=== PATIENT | male | born 1980 | race Two or more races ===

== ENCOUNTER 2018-06-28 16:05 | Emergency (ER) | payer OTHER ==
[~2018-06-28] VITALS: Ht 177.8 cm; Wt 49.9 kg
--- NOTE | 2018-06-28 16:16 | NUR ---
ED Nurse Note: PT BROUGHT IN BY R[facility] FROM [facility]. AOX4. PT C/O BILATERAL HIP PAIN, 5/10 RADIATING DOWN TO BILATERAL LOWER EXTREMITIES X 1 HOUR AGO. PT DENIES RECENT INJURY OR TRAUMA. FULL ROM OF BILATERAL LOWER EXTREMITIES, CAP REFILL <3 SECONDS, CIRCULATION AND SENSATION INTACT, MUSCLE STRENGTH 5/5.
--- NOTE | 2018-06-28 16:17 | NUR ---
ED Nurse Note: PT PRESENTS WITH LACERATION CLOSED WITH VAISHALI TO MEDIAL HEAD. VAISHALI REMOVED BY DR. BALDERRAMA. NO SIGNS OF INFECTION.
[2018-06-28 16:18] VITALS: BP 122/82
--- NOTE | 2018-06-28 16:24 | NUR ---
ED Nurse Note: PT DRESSED IN WEATHER APPROPRIATE CLOTHING. PT OFFERED FOOD AND DRINK BUT PT REFUSES. PT ASKED WHERE HE WILL GO AFTER DISCHARGE FROM EMERGENCY ROOM. PT STATES HE IS GOING TO GO TO [facility]. PT ASKED IF HE NEEDS ASSISTANCE WITH GROUP HOME PLACEMENT. PT REFUSES ASSISTANCE. PT GIVEN INFORMATION ON AVAILABLE SHELTERS AND GIVEN SUGGESTIONS ON POSSIBLE SHELTERS HE CAN GO TO SHOULD HE CHANGE HIS MIND. PT ALSO GIVEN INFORMATION ON FREE HEALTH CLINICS THAT ARE AVAILABLE TO HIM. PT VERBALIZES UNDERSTANDING AND STATES HE WILL LOOK INTO THE RESOURCES ON HIS OWN TIME.
[2018-06-28] MEDS ORDERED: HYDROcodone/Acetamin 5/325 tab ORAL ONE (16:30)
--- NOTE | 2018-06-28 16:51 | NUR ---
ED Nurse Note: XRAY AT BEDSIDE.
--- NOTE | 2018-06-28 17:06 | Emergency Room Report ---
History of Present Illness General Chief Complaint: Pain Source: Patient Present Illness HPI Patient presents to the emergency department today complaining of bilateral hip pain right foot pain and right ankle pain. Patient states that he has history of muscular dystrophy and arthritis that is accelerated. He is currently homeless. He states that he has back pain hip pain right foot pain right ankle pain. He apparently also had a recent fall and had lacerations to the top of his head. This was repaired with renetta. He states that this occurred over a week ago. He needs it to be removed. No other complaints were noted. Denies any recent falls. States that he did trip and hurt his right ankle but he did not fall on his head. No other modifying factors. No other associated signs and symptoms. No other complaints were noted. Allergies: Coded Allergies: No Known Allergies (Unverified , 06/28/18) Patient History Past Medical History: other - Muscular dystrophy Past Surgical History: none Pertinent Family History: none Social History: Denies: smoking, alcohol use, drug use Reviewed Nursing Documentation: PMH: Agreed; PSxH: Agreed Nursing Documentation-PMH Past Medical History: No Stated History Review of Systems All Other Systems: negative except mentioned in HPI Physical Exam Vital Signs Date Time Temp Pulse Resp B/P (MAP) Pulse Ox O2 Delivery O2 Flow Rate FiO2 06/28/18 16:08 97.0 68 18 99 Room Air 06/28/18 16:18 122/82 Sp02 EP Interpretation: reviewed, normal General Appearance: normal inspection, well appearing, no apparent distress, alert Head: other - Renetta in place. Wound appears healed. Eyes: bilateral eye normal inspection ENT: normal ENT inspection, hearing grossly normal, normal voice Neck: normal inspection, full range of motion, supple, no bony tend Respiratory: normal inspection, lungs clear, normal breath sounds, no respiratory distress, no retraction, no wheezing Cardiovascular #1: regular rate, rhythm, no edema Gastrointestinal: normal inspection, normal bowel sounds, non tender, soft, no guarding, no hernia Genitourinary: no CVA tenderness Musculoskeletal: normal inspection, back normal, normal range of motion Neurologic: normal inspection, alert, responsive, speech normal Psychiatric: normal inspection, judgement/insight normal, mood/affect normal Skin: normal inspection, normal color, no rash Medical Decision Making Diagnostic Impression: Primary Impression: Arthritis ER Course Patient states that he has a history of arthritis muscular dystrophy chronic pain. Patient presents emergency department today complaining of bilateral hip pain and right ankle pain. Patient denies any recent trauma. No other injuries are noted. Symptoms noted to moderate. Patient also complains of right foot pain. Because of this x-rays were obtained. X-rays did not show any evidence of fracture dislocation although there was prior instrumentation involving patient's right ankle. In addition patient appeared to have renetta in place in his head. The renetta were removed. Patient tolerated the removal of the renetta on difficulty. Patient was given pain medications with improvement. Patient was offered food here he had a clothing he was advised to go to shelters. The homeless procedures were followed. Patient is advised to follow up with primary doctor in 2-3 days and return the emergency room for any worsening symptoms and as needed. Other X-Ray Diagnostic Results Other X-Ray Diagnostic Results #1: # of Views/Limited Vs Complete: 1 View Indication: Pain EP Interpretation: Yes Interpretation: no dislocation, no soft tissue swelling, no fractures Impression: No acute disease Electronically Signed by: Electronically signed by Noé Mccrary MD Other X-Ray Diagnostic Results #2: X-Ray ordered: Right foot # of Views/Limited Vs Complete: 3 View Indication: Pain EP Interpretation: Yes Interpretation: no dislocation, no soft tissue swelling, no fractures Impression: No acute disease Electronically Signed by: Electronically signed by Noé Mccrary MD Other X-Ray Diagnostic Results #3: X-Ray ordered: Right ankle # of Views/Limited Vs Complete: 3 View Indication: Pain EP Interpretation: Yes Interpretation: no dislocation, no soft tissue swelling, no fractures Impression: No acute disease Electronically Signed by: Electronically signed by Noé Mccrary MD Last Vital Signs Date Time Temp Pulse Resp B/P (MAP) Pulse Ox O2 Delivery O2 Flow Rate FiO2 06/28/18 16:18 97.6 72 17 122/82 100 Room Air Status: improved Disposition: HOME, SELF-CARE Condition: Stable Scripts No Active Prescriptions or Reported Meds Noé Mccrary MD June 28, 2018 17:06
[2018-06-28 18:18] VITALS: BP 126/78
[2018-06-28 18:23] LABS: BASOPHILS % (AUTO) 0.8 % (0.0-2.0); EOSINOPHILS % (AUTO) 0.7 % (0.0-3.0); HEMATOCRIT 46.5 % (42.0-52.0); LYMPHOCYTES % (AUTO) 13.2 % (20.0-45.0); MEAN CORPUSCULAR VOLUME 89 FL (80-99); MONOCYTES % (AUTO) 5.9 % (1.0-10.0); NEUTROPHILS % (AUTO) 79.4 % (45.0-75.0); PLATELET COUNT 413 K/UL (150-450); RED BLOOD COUNT 5.22 M/UL (4.70-6.10); RED CELL DISTRIBUTION WIDTH 12.4 % (11.6-14.8); WHITE BLOOD COUNT 10.7 K/UL (4.8-10.8)
[2018-06-28 18:25] LABS: ANION GAP 14 mmol/L (5-15); BLOOD UREA NITROGEN 7 mg/dL (7-18); CALCIUM 9.1 MG/DL (8.5-10.1); CARBON DIOXIDE 21 MMOL/L (21-32); CHLORIDE 105 MMOL/L (98-107); CREATININE 0.3 MG/DL (0.55-1.30); POTASSIUM 3.9 MMOL/L (3.5-5.1); SODIUM 140 MMOL/L (136-145)
[2018-06-28 18:31] LABS: ALANINE AMINOTRANSFERASE 22 U/L (12-78); ALBUMIN/GLOBULIN RATIO 0.6 (1.0-2.7); ALKALINE PHOSPHATASE 119 U/L (46-116); ASPARTATE AMINO TRANSFERASE 46 U/L (15-37); BILIRUBIN,TOTAL 0.3 MG/DL (0.2-1.0)
--- NOTE | 2018-06-28 18:35 | NUR ---
ED Nurse Note: [facility] CALLED FOR PT TRANSFER. PER UNIT, "THIS ADMISSION IS FOR NEXT SHIFT." WILL HAND-OFF TO ER NIGHT RN.
--- NOTE | 2018-06-28 18:39 | NUR ---
Lashawn flores in EDM - 06/28/18 at 1841 by MICHELLE ED Nurse Note: PT REFUSES SWABS FOR CRE/VRE/MRSA.
--- NOTE | 2018-06-28 18:56 | NUR ---
Note mark in EDM - 06/28/18 at 1901 by MICHELLE ED Nurse Note: PT STATES HE DOES NOT WISH TO REMAIN IN ER ANY LONGER. PT PULLED OUT IV AND STARTED MAKING HIS WAY TO THE EXIT. VERBAL ATTEMPTS MADE TO KEEP PT FROM LEAVING BUT PT INSISTED ON LEAVING AND WALKED OUT OF ER WITH STEADY GAIT. DR TACOS GONCALVES.
--- NOTE | 2018-06-28 19:01 | NUR ---
ED Nurse Note: PT SITTING PEACEFULLY IN BED IN NAD. AOX4. DISCHARGE PAPERWORK EXPLAINED TO PT. PT VERBALIZES UNDERSTANDING BUT REFUSES TO SIGN DISCHARGE PAPERS. DISCHARGE PAPERWORK GIVEN TO PT, IV AND ID WRISTBAND REMOVED. PT WALKED OUT OF ER WITH STEADY GAIT WITH NO ASSISTANCE AND ALL BELONGINGS.
[2018-06-28 19:02] VITALS: BP 122/72
--- NOTE | 2018-06-29 12:23 | Diagnostic Imaging Report ---
Indication: pain Pelvic trauma and pain Findings: Single AP view of the pelvis was performed. No acute fracture is identified. Bilateral hips and sacroiliac joints appear symmetric.There is no malalignment. Soft tissues are unremarkable. Impression: No acute findings.
--- NOTE | 2018-06-29 12:46 | Diagnostic Imaging Report ---
Indication: Pain right ankle ankle pain/trauma Comparison: None Findings: 3 views of the right ankle obtained. No acute fracture, malalignment, periostitis, or osteochondral defects are identified. Bimalleolar hardware placed for fractures. Soft tissues are unremarkable. Impression: Negative for acute injury
== END 2018-06-28 19:02 | disposition home or self-care (01) ==
LOC: EDBD 16:05 → EMR 17:05 → EDBEDREQ 17:47 → CANBEDREQ 18:57 → EMR 19:02
DX: M19.90 Unspecified osteoarthritis, unspecified site (principal); M25.552 Pain in left hip; M25.551 Pain in right hip; M25.571 Pain in right ankle and joints of right foot; G89.29 Other chronic pain
CPT/HCPCS: 36415; 72170; 80053; 85025; 87081; 99282; 99284

== ENCOUNTER 2018-06-28 21:45 | Emergency (ER) | payer OTHER ==
[~2018-06-28] VITALS: Ht 177.8 cm; Wt 90.7 kg
--- NOTE | 2018-06-28 21:48 | NUR ---
Lashawn flores in EDM - 06/29/18 at 0419 by MARIA TERESA Homeless Discharge: Patient is Awake, alert and oriented x4. Walked out of ED without informing staff. Patient ambulated out with all personal belongings with steady gait.
--- NOTE | 2018-06-28 23:15 | NUR ---
ED Nurse Note: Pt arrived ED from street, c/o can not ambulate for a month. Pt is A/O X4, Vital signs stable at this time, pt ambulated with steadfy gaite. Waiting for orders.
--- NOTE | 2018-06-28 23:35 | NUR ---
ED Nurse Note: Provided a cut of orange juice and a sandwiches.
[2018-06-28 23:55] VITALS: BP 116/79
--- NOTE | 2018-06-28 23:55 | NUR ---
Homeless Discharge: Patient is Awake, alert and oriented x4. Walked out of ED without informing staff. Patient ambulated out with all personal belongings with steady gait.
--- NOTE | 2018-06-29 22:00 | Emergency Room Report ---
History of Present Illness General Chief Complaint: Lower Extremity Injury Source: Patient Present Illness HPI Patient is a 38-year-old male brought in by after increased difficulty with ambulation. Patient reports to having inability to ambulate. He had recently been seen for alcohol intoxication. Patient reports having prior history of muscular dystrophy. Patient was noted to have been ambulatory without assistance and left the emergency department by himself on prior visit. Patient reports having subsequent alcohol intake. Allergies: Coded Allergies: No Known Allergies (Unverified , 06/28/18) Patient History Past Medical History: see triage record Reviewed Nursing Documentation: PMH: Agreed; PSxH: Agreed Nursing Documentation-PMH Past Medical History: No History, Except For Hx Neurological Problems: Yes - MUSCULAR DYSTROPHY Review of Systems All Other Systems: limited - Review of systems: Review systems is limited by patient's being a poor historian Physical Exam Vital Signs Date Time Temp Pulse Resp B/P (MAP) Pulse Ox O2 Delivery O2 Flow Rate FiO2 06/28/18 21:48 98.1 76 20 118/79 Room Air 06/28/18 21:58 94 General Appearance: well appearing, no apparent distress, alert Head: normocephalic, atraumatic ENT: hearing grossly normal, normal voice Neck: full range of motion, supple Respiratory: normal inspection, no respiratory distress, speaking full sentences Cardiovascular #1: normal inspection Musculoskeletal: no calf tenderness Neurologic: normal inspection, alert, oriented x3, normal gait Psychiatric: normal inspection, mood/affect normal Skin: normal inspection, no rash Medical Decision Making Diagnostic Impression: Primary Impression: Alcohol abuse ER Course Patient presented for reported inability to ambulate. Differential diagnosis includes is not limited to alcohol intoxication, muscular dystrophy, among others. Patient was noted to have a recent visit for similar symptoms. Patient was noted to be able to ambulate without assistance. He did not show any evidence of acute injury. Patient was seen and examined. He subsequently eloped without notifying staff. Last Vital Signs Date Time Temp Pulse Resp B/P (MAP) Pulse Ox O2 Delivery O2 Flow Rate FiO2 06/28/18 21:58 97.9 104 19 94 Room Air 06/28/18 21:48 118/79 Status: improved Disposition: ELOPED Condition: Stable Scripts No Active Prescriptions or Reported Meds Referrals: NOT CHOSEN IPA/,REFERRING (PCP) Basilio Harley MD June 29, 2018 22:00
== END 2018-06-28 23:55 | disposition left against medical advice (07) ==
LOC: EDBD 21:45 → EMR 23:29
DX: F10.120 Alcohol abuse with intoxication, uncomplicated (principal); G71.00 Muscular dystrophy, unspecified
CPT/HCPCS: 99282